=== PATIENT | female | born 1960 | race Caucasian/White ===

== ENCOUNTER 2018-03-15 15:20 | Outpatient (CLI) | payer BC | END 2018-03-15 15:21 | disposition home or self-care (01) | LOC: BICMAMMO 15:20 | PROVIDERS: ATTEND Family Medicine | DX: Z12.31 Encounter for screening mammogram for malignant neoplasm of breast (principal); N64.89 Other specified disorders of breast | CPT/HCPCS: 77063; 77067 ==

== ENCOUNTER 2018-03-25 08:40 | Outpatient (CLI) | payer BC ==
--- NOTE | 2018-03-25 10:33 | ULT ---
LIMITED SONOGRAM RIGHT BREAST: Date: 03-25-18 History: Questionable area of distortion noted on screening mammography. Comparison: Mammograms 03-25-18 and diagnostic images on 03-25-18. FINDINGS: Limited sonographic evaluation in the retroareolar region right breast was performed. No mass or cyst ic lesion is seen in the retroareolar region of the right breast. There is shadowing noted immediatel y behind the nipple, but additional images were obtained with angling of the transducer which do not demonstrate area of shadowing or mass in this region. IMPRESSION: BIRADS category 3 - probably benign findings. Short interval follow up unilateral right mammogram is recommended in 6 months. POS: OFF
== END 2018-03-25 08:41 | disposition home or self-care (01) ==
LOC: BICMAMMO 08:40
PROVIDERS: ATTEND Family Medicine
DX: R92.2 Inconclusive mammogram (principal)
CPT/HCPCS: G0279

== ENCOUNTER 2019-09-09 10:37 | Emergency (ER) | payer OTHER ==
[2019-09-09 11:17] LABS: #Basophils 0.1 thou/uL (0.0-0.2); #Eosinphils 0.1 thou/uL (0.0-0.7); #Lymphocytes 1.1 thou/uL (1.20-3.40); #Monocytes 0.2 thou/uL (0.11-0.59); #Neutrophils 5.8 thou/uL (1.40-6.50); %Basophils 0.9 % (0.0-1.0); %Eosinophils 1.2 % (0.0-10.0); %Lymphocytes 15.4 % (21.0-51.0); %Monocytes 3.4 % (0.0-10.0); %Neutrophils 79.1 % (42.0-75.0); Hemoglobin 16.2 g/dL (12.0-16.0); Mean Corpuscular HGB CONC 32.7 g/dL (32.0-36.0); Mean Corpuscular Hemoglobin 30.7 pg (27.0-31.0); Mean Corpuscular Volume 93.7 fL (78.0-98.0); Mean Platelet Volume 8.2 fL (7.4-10.4); Platelet Count 193 thou/uL (130-400); RBC Distribution Width 12.1 % (11.5-14.5); Red Blood Cell (RBC) Count 5.28 mill/uL (4.20-5.40); White Blood Cell (WBC) Count 7.3 thou/uL (4.8-10.8)
[2019-09-09 11:35] LABS: Bacteria/HPF None Seen HPF (None Seen); Bilirubin Negative (Negative); Blood, Urine Negative (Negative); Clarity Clear (Clear); Glucose, Urine (Dipstick) Normal (Negative); Leukocyte 75 Leu/uL (Negative); Nitrite Negative (Negative); Protein, Urine (Dipstick) Negative (Neg-Trace); RBC/HPF 0-3 HPF (0-3); Squamous Epithelial 0-3 HPF (0-3); Urobilinogen Normal mg/dL (Less than 2); WBC/HPF 0-3 HPF (0-3)
[2019-09-09] MEDS ORDERED: Morphine 4 MG/ML VIAL ONE (11:45)
[2019-09-09] MEDS ORDERED: Ondansetron PF 4 MG/2 ML Vial ONE (11:45)
[2019-09-09 12:21] LABS: ALT (SGPT) 41 U/L (8-55); AST (SGOT) 30 U/L (5-34); Albumin 4.8 g/dL (3.5-5.0); Alkaline Phosphatase 72 U/L (40-110); Anion Gap 15 mmol/L (10-20); BUN (Urea Nitrogen) 11 mg/dL (9.8-20.1); Bilirubin, Total 1.1 mg/dL (0.2-1.2); Calc. Creatinine Clearance 0 mL/min (70-130); Calcium 9.7 mg/dL (7.8-10.44); Carbon Dioxide 26 mmol/L (22-29); Chloride 105 mmol/L (98-107); Estimated GFR-MDRD 66; Globulin 3.2 g/dL (2.4-3.5); Glucose 81 mg/dL (70-105); Sodium 142 mmol/L (136-145)
--- NOTE | 2019-09-09 13:00 | CT ---
CT ABDOMEN AND PELVIS PERFORMED WITHOUT CONTRAST ENHANCEMENT: History: Right flank pain x 1 week. FINDINGS: The lung bases are clear of any infiltrative process. The liver, spleen, pancreas, and gallbladder regions appear unremarkable given the limitations of a n oncontrast exam. The right and left adrenal glands and right and left kidneys are normal in size. There are no renal c alculi identified. No obstruction or evidence of any ureteral calculus. There is no significant periaortic or mesenteric lymphadenopathy. The appendix is retrocecal in locat ion and is normal in size. A calcification is seen which appears to be either adjacent to the appendi x or within the appendiceal wall. It does not appear to represent an appendicolith within the lumen a nd there is no inflammatory change. There is no pelvic lymphadenopathy or mass demonstrated. No infla mmatory process. Mild arthritic change of the spine noted. IMPRESSION: No acute abnormalities of the abdomen or pelvis. POS: RADHA
[2019-09-09] MEDS ORDERED: Ketorolac Tromethamine 30 MG/ML VIAL ONE (13:35)
== END 2019-09-09 14:09 | disposition home or self-care (01) ==
LOC: ERS 10:37
DX: R10.9 Unspecified abdominal pain (principal); E03.9 Hypothyroidism, unspecified; Z79.899 Other long term (current) drug therapy
CPT/HCPCS: 36415; 74176; 80053; 81003; 81015; 83690; 85025; 87086; 96374; 96375; J1885; J2270; J2405

== ENCOUNTER 2020-05-29 10:44 | Emergency (ER) | payer OTHER ==
--- NOTE | 2020-05-29 11:41 | RAD ---
Exam:2 views right hip HISTORY: Progressively worsening pain, x3 weeks COMPARISON: None FINDINGS: Contour of the femoral head is maintained. Joint spaces preserved. Visualized bony pelvis a nd sacrum are unremarkable. IMPRESSION: No radiographic abnormality.
[2020-05-29] MEDS ORDERED: Dexamethasone 10 MG/ML VIAL ONE (11:48)
== END 2020-05-29 12:05 | disposition home or self-care (01) ==
LOC: ERS 10:44
DX: M25.551 Pain in right hip (principal); E03.9 Hypothyroidism, unspecified; Z79.899 Other long term (current) drug therapy
CPT/HCPCS: 96372; J1100

== ENCOUNTER 2020-08-30 08:54 | Outpatient (CLI) | payer OTHER | END 2020-08-30 08:55 | disposition home or self-care (01) | LOC: BICMAMMO 08:54 | PROVIDERS: ATTEND Family Medicine | DX: R92.8 Other abnormal and inconclusive findings on diagnostic imaging of breast (principal) | CPT/HCPCS: 77066; G0279 ==